=== PATIENT | male | born 1980 | race Caucasian/White ===

== ENCOUNTER 2020-07-02 19:39 | Inpatient (IN) | payer OTHER ==
[~2020-07-02] VITALS: Ht 175.3 cm; Wt 92.2 kg
--- NOTE | ~2020-07-02 | PROC ---
[address] [address] PROCEDURE REPORT Name: MICHAEL MATTSON Room: [address] IN M.R.#: [id number] Admission: 07/03/20 Attend Phys: Chema Meredith MD Discharge: 07/05/20 Date of : 78 Report #: [id number] THIS REPORT FOR: //name// cc: [facility] - [facility] physician unknown [facility] - [facility] physician unknown ~ THIS REPORT FOR: //name// For GI report, please see the Provation report in Perceptive 7 content. By: [id number] Records Staff DIGNA /MILTON
[2020-07-02 19:44] VITALS: BP 139/105
[2020-07-02] MEDS ORDERED: MINIPRESS2 MG PO (19:48)
[2020-07-02] MEDS ORDERED: CELEXA10 MG PO (19:49)
[2020-07-02] MEDS ORDERED: MELATONIN5 MG SUBLING (19:49)
[2020-07-02] MEDS ORDERED: DEPAKOTE ER500 M1 PO (19:49)
[2020-07-02 20:07] LABS: ABSOLUTE EOSINOPHILS 0.1 thou/uL (0.0-0.7); ABSOLUTE LYMPHOCYTES 1.3 thou/uL (0.8-5.3); ABSOLUTE MONOCYTES 0.5 thou/uL (0.0-1.2); ABSOLUTE NEUTROPHILS 4.6 thou/uL (1.6-8.1); BASOPHILS 0.8 %; HEMATOCRIT 43.8 % (42.0-52.0); HEMOGLOBIN 15.2 gm/dL (14.0-18.0); LYMPHOCYTES 20.2 %; MCHC 34.6 g/dL (28.0-37.0); MCV 89.7 fL (80.0-100.0); MONOCYTES 8.1 %; MPV 7.1 fl. (7.2-11.1); NUCLEATED RBCS 0 /100WBC; PLATELET COUNT* 198 thou/uL (150-400); POLYS 69.9 %; RBC 4.89 mil/uL (4.50-6.00); RDW-CV 13.2 % (10.5-14.5); WBC 6.6 thou/uL (4.0-11.0)
[2020-07-02 20:13] LABS: CALCIUM 9.1 mg/dL (8.5-10.1); CREATININE 1.2 mg/dL (0.6-1.3); POTASSIUM 4.1 mmol/L (3.5-5.1)
[2020-07-02 20:17] LABS: ALBUMIN 4.1 g/dL (3.4-5.0); MAGNESIUM 1.7 mg/dL (1.8-2.4); TOTAL BILIRUBIN 0.8 mg/dL (<0.1-1.0)
[2020-07-02] MEDS ORDERED: HYDROCODON-ACE1 EAC8 PO (22:32)
[2020-07-02] MEDS ORDERED: ZOFRAN ODT4 MG PO (22:32)
[2020-07-02] MEDS ORDERED: PROTONIX40 MG PO (22:32)
[2020-07-02 22:45] VITALS: BP 127/69
[2020-07-03 01:00] VITALS: BP 136/93
[2020-07-03 08:30] VITALS: BP 132/83
[2020-07-03 11:25] VITALS: BP 136/93
[2020-07-03 11:30] LABS: ABSOLUTE EOSINOPHILS 0.1 thou/uL (0.0-0.7); ABSOLUTE LYMPHOCYTES 0.9 thou/uL (0.8-5.3); ABSOLUTE MONOCYTES 0.7 thou/uL (0.0-1.2); ABSOLUTE NEUTROPHILS 5.2 thou/uL (1.6-8.1); BASOPHILS 0.6 %; EOSINOPHILS 1.5 %; HEMATOCRIT 39.1 % (42.0-52.0); HEMOGLOBIN 13.4 gm/dL (14.0-18.0); LYMPHOCYTES 13.3 %; MCHC 34.2 g/dL (28.0-37.0); MCV 90.8 fL (80.0-100.0); MONOCYTES 9.9 %; MPV 7.1 fl. (7.2-11.1); NUCLEATED RBCS 0 /100WBC; PLATELET COUNT* 171 thou/uL (150-400); POLYS 74.7 %; RBC 4.31 mil/uL (4.50-6.00); RDW-CV 13.3 % (10.5-14.5); WBC 6.9 thou/uL (4.0-11.0)
[2020-07-03 11:43] LABS: ALBUMIN 3.4 g/dL (3.4-5.0); CALCIUM 8.1 mg/dL (8.5-10.1); CREATININE 1.1 mg/dL (0.6-1.3); POTASSIUM 3.8 mmol/L (3.5-5.1); TOTAL BILIRUBIN 1.1 mg/dL (<0.1-1.0); TOTAL PROTEIN 6.6 g/dL (6.4-8.2)
[2020-07-03 15:52] LABS: INR 1.1
[2020-07-03 15:55] LABS: CALCIUM 8.7 mg/dL (8.5-10.1); MAGNESIUM 1.7 mg/dL (1.8-2.4); PHOSPHORUS* 3.8 mg/dL (2.5-4.9)
[2020-07-03 15:56] LABS: AMMONIA < 10 umol/L (11-32)
[2020-07-03 16:42] LABS: URINE BILIRUBIN NEGATIVE (Negative); URINE BLOOD NEGATIVE (Negative); URINE CLARITY CLEAR; URINE COLOR YELLOW; URINE GLUCOSE-RANDOM NEGATIVE (Negative); URINE KETONES 1+ (Negative); URINE LEUKOCYTES-REFLEX NEGATIVE (Negative); URINE NITRITE-REFLEX NEGATIVE (Negative); URINE PROTEIN TRACE (Negative); URINE SPECIFIC GRAVITY 1.015 (1.005-1.030); URINE UROBILINOGEN 0.2 E.U./dl (0.2-1.0)
[2020-07-03 23:00] LABS: AMP/METHAMP Negative (Negative); BARBITURATES Negative (Negative); BENZODIAZEPINES Negative (Negative); COCAINE Negative (Negative); METHADONE Negative (Negative); OPIATES POSITIVE (Negative); PCP Negative (Negative); THC Negative (Negative)
[2020-07-04 00:54] VITALS: BP 111/62
[2020-07-04 04:00] VITALS: BP 106/70
[2020-07-04 05:19] LABS: ABSOLUTE EOSINOPHILS 0.2 thou/uL (0.0-0.7); ABSOLUTE LYMPHOCYTES 1.3 thou/uL (0.8-5.3); ABSOLUTE MONOCYTES 0.6 thou/uL (0.0-1.2); ABSOLUTE NEUTROPHILS 3.2 thou/uL (1.6-8.1); BASOPHILS 0.9 %; EOSINOPHILS 3.5 %; HEMATOCRIT 38.2 % (42.0-52.0); HEMOGLOBIN 13.1 gm/dL (14.0-18.0); LYMPHOCYTES 23.9 %; MCH 31.3 pg (26.0-34.0); MCHC 34.2 g/dL (28.0-37.0); MCV 91.3 fL (80.0-100.0); MONOCYTES 10.5 %; MPV 7.4 fl. (7.2-11.1); NUCLEATED RBCS 0 /100WBC; PLATELET COUNT* 155 thou/uL (150-400); POLYS 61.2 %; RBC 4.19 mil/uL (4.50-6.00); RDW-CV 13.7 % (10.5-14.5); WBC 5.2 thou/uL (4.0-11.0)
[2020-07-04 05:40] LABS: ALBUMIN 3.3 g/dL (3.4-5.0); ALKALINE PHOSPHATASE 55 U/L (46-116); ANION GAP 7 mmol/L (7-16); BUN 6 mg/dL (7-18); CALCIUM 8.3 mg/dL (8.5-10.1); CHLORIDE 105 mmol/L (98-107); CHOLESTEROL 212 mg/dL (<200); CO2 30 mmol/L (21-32); CREATININE 1.2 mg/dL (0.6-1.3); GLUCOSE 89 mg/dL (70-99); HDL CHOLESTEROL 65 mg/dL (>40); LDL CHOLESTEROL 126 mg/dL (<100); POTASSIUM 3.7 mmol/L (3.5-5.1); SGOT 78 U/L (15-37); SGPT 128 U/L (30-65); SODIUM 142 mmol/L (136-145); TC:HDL 3.3 Ratio (Not establshd); TOTAL BILIRUBIN 1.1 mg/dL (<0.1-1.0); TOTAL PROTEIN 6.5 g/dL (6.4-8.2); TRIGLYCERIDE 108 mg/dL (<150); VLDL 22 mg/dL (<40)
[2020-07-04 05:55] LABS: SERUM ASSESSMENT CLEAR
[2020-07-04 06:17] LABS: % SATURATION 42 % (20-39); IRON 147 ug/dL (50-175)
[2020-07-04 07:33] LABS: ESR (SEDRATE) 5 mm/hr (0-15)
[2020-07-04 08:00] VITALS: BP 123/81
[2020-07-04 12:15] VITALS: BP 120/79
[2020-07-04 17:19] VITALS: BP 119/73
[2020-07-05 00:44] VITALS: BP 113/60
[2020-07-05 04:40] VITALS: BP 109/71
[2020-07-05 06:07] LABS: CREATININE 1.1 mg/dL (0.6-1.3); PHOSPHORUS* 4.4 mg/dL (2.5-4.9)
[2020-07-05 08:00] VITALS: BP 116/81
[2020-07-05 09:07] LABS: HEPATITIS B SURFACE AG Negative (Negative)
[2020-07-05] MEDS ORDERED: LORAZEPAM 1 MG T1 MG PO (09:55)
[2020-07-05] MEDS ORDERED: PRENATAL PO (09:55)
[2020-07-05] MEDS ORDERED: VITAMIN B-1100 M1 PO (09:55)
[2020-07-05] MEDS ORDERED: REGLAN 10 MG TA10 MG PO (09:55)
[2020-07-05] MEDS ORDERED: HYDROCODON-ACE1 EAC8 PO (09:55)
[2020-07-05] MEDS ORDERED: PROTONIX40 M1 PO (09:55)
[2020-07-05 12:00] VITALS: BP 122/69
[2020-07-05 18:10] VITALS: BP 122/69
--- NOTE | 2020-07-08 10:51 | PATH ---
[facility] [address] [place] [address] PATHOLOGY RPT PROCEDURE Name: SJ DC Room: [address] IN M.R.#: [id number] Admission: 07/03/20 Date of : 78 Discharge: 07/05/20 Report #: [id number] Path Case #: [id number] [facility] Accession Number: [id number] . 01 Material submitted: . small bowel - SMALL BOWEL BIOPSY FOR EROSION . 01 Clinical history: . VOMITING AND DIARRHEA . 02 Diagnosis: Small bowel biopsies: - Normal small intestinal mucosa. (SYDNEY:corona; 07/06/2020) S 07/06/2020 0957 Local . 02 Electronically signed: . Lalo Plata MD, Pathologist NPI- [id number] . 01 Gross description: . The specimen is received in formalin, labeled "Sj Dc, small bowel biopsies for erosions". Received are four segments of pale [address] soft tissue ranging in size from 0.3 to 0.4 cm in maximum dimensions. The specimen is submitted entirely in cassette A1. (CAA; 07/05/2020) QAC/QAC 07/05/2020 1514 Local . 02 Pathologist provided ICD-10: R11.10, R19.7 . 02 CPT . 181549 Specimen Comment: A courtesy copy of this report has been sent to [phone] Specimen Comment: Report sent to Specimen Comment: A duplicate report has been generated due to demographic updates. Performed at: 01 [facility] [address] [facility] [address], [place], [place] [id number] MD Niko Lezama MD Phone: [phone] Performed at: 02 [facility] [address], [place], [place] [id number] MD Lalo Plata MD Phone: [phone]
--- NOTE | 2020-07-09 12:21 | CON ---
[address] [address] CONSULTATION Name: MICHAEL MATTSON Room: [address] IN M.R.#: [id number] Admission: 07/03/20 Attend Phys: Chema Meredith MD Discharge: 07/05/20 Date of : 78 Report #: [id number] THIS REPORT FOR: //name// cc: [facility] - [facility] physician unknown [facility] - Clinic physician unknown ~ THIS REPORT FOR: //name// CC: [facility] unknown Chema Garcia MD [facility] DATE OF SERVICE: 07/03/2020 REFERRING PHYSICIAN: Chema Meredith MD REASON FOR CONSULTATION: Recurrent nausea and vomiting. IMPRESSION: 1. Recurrent nausea and vomiting of uncertain etiology. 2. Bowel changes with tendency towards diarrhea. 3. Chronic alcohol abuse. 4. Elevated LFTs. 5. Chronic acid reflux, which the patient feels well controlled and taking Prilosec qcls-wus-[id number] once daily. 6. Mood disorder, requiring medications for the same. RECOMMENDATIONS: 1. We will proceed with upper endoscopy today to evaluate his complaints of chronic reflux, nausea and vomiting. 2. We will monitor the patient for alcohol withdrawal. 3. The patient will need to get serologic studies to evaluate his mildly elevated LFTs. 4. We will also check urine drug screen to ensure he is not smoking pot and putting him at risk for cyclic vomiting syndrome. 5. We will proceed with colonoscopy once the patient is able to tolerate a bowel preparation. 6. I have discussed the plans with the patient as well and he is agreeable to the same. HISTORY OF PRESENT ILLNESS: A very pleasant 40-year-old white male who presented to the Emergency Room on the with complaints of multiple episodes of recurrent nausea and vomiting over the last couple of months. He has just not been feeling well. He also has problems with lower abdominal cramping. He is having anywhere from 4-5 stools a day. [place] [id number] CONSULTATION Name: MICHAEL MATTSON Room: [address]#: [id number] Admission: 07/03/20 Attend Phys: Chema Meredith MD Discharge: 07/05/20 Date of : 78 Report #: [id number] intake of around up to 4-5 times per day. He denies any dysphagia or odynophagia and he feels that his reflux symptoms are fairly well controlled with taking Prilosec dzdz-[id number]-jibrrgs once daily. He has had some soreness in his abdomen, which he attributes to just throwing up all the time. He is admitted to the hospital for further evaluation and treatment. ALLERGIES: None. MEDICATIONS: Prazosin, Depakote, Celexa, and melatonin. PAST MEDICAL HISTORY: Remarkable for hypertension. He has mood disorder and anxiety. He has had previous hernia repairs. He has had ankle scope and diskectomy as well. SOCIAL HISTORY: The patient is a former smoker of cigarettes, he quit greater than a year ago. He drinks on a regular basis. He denies any drug use, recreational otherwise. FAMILY HISTORY: Not taken. PHYSICAL EXAMINATION: GENERAL: Revealed a 40-year-old gentleman who appears older than stated age. CARDIOPULMONARY: His cardiopulmonary examination was denied. He was little tachycardic. ABDOMEN: Soft, diffusely tender. No rebound or guarding noted. LABORATORY DATA: From admission revealed white count of 6.6, hemoglobin 15.2, platelet count 190,000, MCV is 89.7, and RDW is 13.2. Sodium is 140, potassium 4.1, chloride 101, bicarbonate is 27, BUN is 5, creatinine 1.2, and GFR of 67. Total bilirubin 0.8, alkaline phosphatase 77, AST is 169, and ALT 200. His albumin is 4.1. His serum alcohol was 14. CT scan of the abdomen and pelvis performed with contrast was unrevealing except for the hiatal hernia. DISCUSSION: At the present time, the patient has problem with recurrent nausea and vomiting. We will proceed with upper endoscopy today and make further recommendations thereafter. I have discussed the plans with the patient as well and he is agreeable to the same. <ELECTRONICALLY SIGNED> By: Salomón Mejia DO 07/09/20 1221 0756 [id number] Mejia DO /nt
== END 2020-07-05 18:21 | disposition home or self-care (01) | DRG 392 ==
LOC: M.ERS 19:39 → M.TBA-ER 23:57 → M.ORTHSURG 07-03 00:36 → M.2W 07-03 15:41 → M.ORTHSURG 07-03 15:41 → M.2W 07-03 16:45
PROVIDERS: Emergency Medicine; Internal Medicine; Internal Medicine Gastroenterology; ADMIT Internal Medicine; ATTEND Internal Medicine
PROC: 0DB98ZX Excision of Duodenum, Via Natural or Artificial Opening Endoscopic, Diagnostic (ICD-10-PCS; principal; 2020-07-03)
DX: A08.4 Viral intestinal infection, unspecified (principal); E87.2 Acidosis; F41.9 Anxiety disorder, unspecified; E86.0 Dehydration; F39 Unspecified mood [affective] disorder; F10.10 Alcohol abuse, uncomplicated; G47.00 Insomnia, unspecified; K21.0 Gastro-esophageal reflux disease with esophagitis; K44.9 Diaphragmatic hernia without obstruction or gangrene; M19.079 Primary osteoarthritis, unspecified ankle and foot; K90.0 Celiac disease; R11.15 Cyclical vomiting syndrome unrelated to migraine; K31.89 Other diseases of stomach and duodenum; K31.84 Gastroparesis; Z20.828 Contact with and (suspected) exposure to other viral communicable diseases; Z79.899 Other long term (current) drug therapy; Z87.891 Personal history of nicotine dependence

== ENCOUNTER 2021-03-08 11:04 | Emergency (ER) | payer OTHER ==
[~2021-03-08] VITALS: Ht 175.3 cm; Wt 79.4 kg
[~2021-03-08 11:04] MED LIST: CELEXA10 MG PO; DEPAKOTE ER500 M1 PO; HYDROCODON-ACE1 EAC8 PO; LORAZEPAM 1 MG T1 MG PO; MELATONIN5 MG SUBLING; MINIPRESS2 MG PO; PRENATAL PO; PROTONIX40 M1 PO; PROTONIX40 MG PO; REGLAN 10 MG TA10 MG PO; VITAMIN B-1100 M1 PO; ZOFRAN ODT4 MG PO; [UNRECOGNIZED DRUG - REMARK]
[2021-03-08] MEDS ORDERED: OMEPRAZOLE 20 M20 M1 PO (11:24)
[2021-03-08] MEDS ORDERED: MELATONIN3 M1 PO (11:24)
[2021-03-08] MEDS ORDERED: ZANAFLEX4 MG PO (11:54)
[2021-03-08] MEDS ORDERED: MOBIC7.5 MG PO (11:54)
[2021-03-08 12:07] LABS: URINE BILIRUBIN NEGATIVE (Negative); URINE BLOOD NEGATIVE (Negative); URINE CLARITY CLEAR; URINE COLOR YELLOW; URINE GLUCOSE-RANDOM NEGATIVE (Negative); URINE KETONES 2+ (Negative); URINE LEUKOCYTES-REFLEX NEGATIVE (Negative); URINE NITRITE-REFLEX NEGATIVE (Negative); URINE PROTEIN TRACE (Negative)
[2021-03-08 12:18] VITALS: BP 120/85
== END 2021-03-08 12:18 | disposition home or self-care (01) ==
LOC: M.ERS 11:04
PROVIDERS: Nurse Practitioner
DX: S39.012A Strain of muscle, fascia and tendon of lower back, initial encounter (principal); Z88.8 Allergy status to other drugs, medicaments and biological substances; Z79.899 Other long term (current) drug therapy; Z98.890 Other specified postprocedural states; X58.XXXA Exposure to other specified factors, initial encounter; Y93.89 Activity, other specified; Y92.89 Other specified places as the place of occurrence of the external cause; Y99.9 Unspecified external cause status

== ENCOUNTER 2021-03-19 14:13 | Emergency (ER) | payer OTHER ==
[~2021-03-19] VITALS: Ht 175.3 cm; Wt 79.4 kg
[~2021-03-19 14:13] MED LIST changes: +MELATONIN3 M1 PO; +MOBIC7.5 MG PO; +OMEPRAZOLE 20 M20 M1 PO; +ZANAFLEX4 MG PO
[2021-03-19 14:54] LABS: ABSOLUTE LYMPHOCYTES 0.4 thou/uL (0.8-5.3); ABSOLUTE MONOCYTES 0.4 thou/uL (0.0-1.2); ABSOLUTE NEUTROPHILS 3.9 thou/uL (1.6-8.1); BASOPHILS 0.7 %; EOSINOPHILS 0.1 %; HEMOGLOBIN 13.1 gm/dL (14.0-18.0); LYMPHOCYTES 9.5 %; MCH 33.1 pg (26.0-34.0); MCHC 34.4 g/dL (28.0-37.0); MCV 95.9 fL (80.0-100.0); MONOCYTES 7.8 %; MPV 7.1 fl. (7.2-11.1); NUCLEATED RBCS 0 /100WBC; PLATELET COUNT* 97 thou/uL (150-400); POLYS 81.9 %; RBC 3.96 mil/uL (4.50-6.00); RDW-CV 14.7 % (10.5-14.5); WBC 4.7 thou/uL (4.0-11.0)
[2021-03-19 14:58] LABS: URINE BILIRUBIN NEGATIVE (Negative); URINE BLOOD NEGATIVE (Negative); URINE CLARITY CLEAR; URINE COLOR YELLOW; URINE GLUCOSE-RANDOM NEGATIVE (Negative); URINE KETONES 2+ (Negative); URINE LEUKOCYTES-REFLEX NEGATIVE (Negative); URINE NITRITE-REFLEX NEGATIVE (Negative); URINE PROTEIN TRACE (Negative); URINE SPECIFIC GRAVITY 1.015 (1.005-1.030)
[2021-03-19 15:01] LABS: CALCIUM 8.5 mg/dL (8.5-10.1); CREATININE 0.7 mg/dL (0.6-1.3); POTASSIUM 3.6 mmol/L (3.5-5.1)
[2021-03-19 15:11] LABS: ALBUMIN 3.2 g/dL (3.4-5.0); MAGNESIUM 1.5 mg/dL (1.8-2.4); TOTAL BILIRUBIN 1.2 mg/dL (<0.1-1.0); TOTAL PROTEIN 6.7 g/dL (6.4-8.2)
[2021-03-19 15:36] LABS: AMP/METHAMP Negative (Negative); BARBITURATES Negative (Negative); BENZODIAZEPINES Negative (Negative); COCAINE Negative (Negative); METHADONE Negative (Negative); OPIATES Negative (Negative); PCP Negative (Negative); THC POSITIVE (Negative)
[2021-03-19 15:47] LABS: APTT 24.4 Seconds (25.0-31.3); INR 1.1; PROTIME 11.4 Seconds (9.20-11.50)
[2021-03-19] MEDS ORDERED: ZOFRAN ODT4 MG PO (18:22)
[2021-03-19] MEDS ORDERED: FLEXERIL PO (18:22)
[2021-03-19 18:32] VITALS: BP 117/81
--- NOTE | 2021-03-20 15:23 | EKG ---
[place] [address] ELECTROCARDIOGRAM REPORT Name: MICHAEL MATTSON Room: [facility]#: [id number] Admission: 03/19/21 Attend Phys: Discharge: 03/19/21 Date of : 78 Date of Service: 03/19/21 1437 Report #: [id number] THIS REPORT FOR: //name// [facility] ED Test Date: 2021-03-19 Test Time: 14:37:47 Pat Name: MICHAEL MATTSON Department: Room: Gender: Assistant Restaurant General Manager: : 1980 Requested By: Brenda Durham Order Number: [id number] : Nestor Glass Measurements Intervals [place] Rate: 65 P: 34 UT: 144 QRS: 25 QRSD: 105 T: 52 QT: 439 QTc: 457 Interpretive Statements Sinus rhythm Compared to ECG 12/07/2020 11:24:52 T-wave abnormality no longer present Electronically Signed On 03-20-2021 15:23:39 CDT by Nestro Glass [email or web address] <ELECTRONICALLY SIGNED> By: Nestor Glass MD, [facility] 03/20/21 1523 1437 1437 Nestor Glass MD, [facility] /EPI
== END 2021-03-19 18:33 | disposition home or self-care (01) ==
LOC: M.ERS 14:13
PROVIDERS: Nurse Practitioner Family
DX: K20.90 Esophagitis, unspecified without bleeding (principal); K76.0 Fatty (change of) liver, not elsewhere classified; F10.20 Alcohol dependence, uncomplicated; Y90.1 Blood alcohol level of 20-39 mg/100 ml; B34.9 Viral infection, unspecified; E78.5 Hyperlipidemia, unspecified; Z88.8 Allergy status to other drugs, medicaments and biological substances; Z79.899 Other long term (current) drug therapy

== ENCOUNTER 2021-07-05 10:00 | Emergency (ER) | payer OTHER ==
[~2021-07-05] VITALS: Ht 175.3 cm; Wt 81.7 kg
[~2021-07-05 10:00] MED LIST changes: +FLEXERIL PO
[2021-07-05] MEDS ORDERED: MEDROLDOSEPACK PO (12:00)
[2021-07-05] MEDS ORDERED: FLEXERIL PO (12:00)
[2021-07-05 12:09] VITALS: BP 134/72
== END 2021-07-05 12:10 | disposition home or self-care (01) ==
LOC: M.ERS 10:00
DX: M54.5 Low back pain (principal); F41.9 Anxiety disorder, unspecified; E78.00 Pure hypercholesterolemia, unspecified; F10.10 Alcohol abuse, uncomplicated; Z98.890 Other specified postprocedural states; Z79.1 Long term (current) use of non-steroidal anti-inflammatories (NSAID); Z79.899 Other long term (current) drug therapy; Z88.8 Allergy status to other drugs, medicaments and biological substances